=== PATIENT | male | born 1995 | race Caucasian/White ===

== ENCOUNTER 2019-12-10 15:05 | Emergency (ER) | payer SELFPAY ==
[2019-12-10] MEDS ORDERED: Acetaminophen 500 MG Tab PO ONE (15:07)
[2019-12-10] MEDS ORDERED: Ibuprofen 400 MG Tab PO ONE (15:07)
--- NOTE | 2019-12-10 15:39 | CR ---
Left hand: 3 views left hand were obtained. Comparison: No previous and study. Findings: Multiple small radiopacities are noted within the base of the left second finger as well as within the distal fourth finger. Minimal opacity is noted within the thumb slightly distal to the IP joint. No acute fracture, dislocation or other bony abnormality is seen. Impression: 1. Multiple small radiopacities. 2. No acute bony abnormality is seen. Diagnostic code #2 Study was dictated in MDT
[2019-12-10] MEDS ORDERED: Amoxicillin/Clavulanate K 875-125 MG Tab PO ONE (16:31)
[2019-12-10] MEDS ORDERED: Bacitracin Oint 1 GM U/D Packet TOP ONE (16:31)
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
[2019-12-10 19:34] VITALS: BP 119/62; PULSE 87
== END 2019-12-10 17:15 | disposition home or self-care (01) ==
LOC: MW.ED 15:05
DX: S61.231A Puncture wound without foreign body of left index finger without damage to nail, initial encounter (principal); F17.210 Nicotine dependence, cigarettes, uncomplicated; W34.00XA Accidental discharge from unspecified firearms or gun, initial encounter
CPT/HCPCS: 64450; 73130; 99283; A9270